=== PATIENT | female | born 1995 | race Hispanic/Latino ===

== ENCOUNTER → 2024-05-02 11:02 | Outpatient (CLI) | payer OTHER, SELFPAY ==
[2024-05-02 12:14] LABS: Add Manual Diff / Slide Review NO; Basophils Absolute Auto 100 /uL (0-100); Eosinophils Absolute Auto 100 /uL (0-450); Eosinophils Percent Auto 1.5 % (2-4); Lymphocytes Absolute Auto 1700 /uL (1100-4500); Mean Corpuscular HGB Conc 33.3 % (30-36); Mean Corpuscular Hemoglobin 27.5 PG (26-34); Mean Corpuscular Volume 82.6 fL (80-100); Monocytes Absolute Auto 600 /uL (0-900); Monocytes Percent Auto 7.7 % (3-14); Neutrophils Absolute Auto 5300 /uL (1500-7000); Neutrophils Percent Auto 67.8 % (50-75); Platelet Count 265 X10^3/uL (150-400); Red Blood Cell Count 4.36 X10^6/uL (4.0-5.2); Red Cell Distribution Width 13.7 % (11.6-14.8); White Blood Cell Count 7.7 X10^3/uL (4.5-11.0)
[2024-05-03 07:08] LABS: RPR Screen Non Reactive (Non Reactive)
[2024-05-03 10:11] LABS: Varicella IgG Antibody Reactive (Non Reactive)
== END ==
PROVIDERS: PCP Specialist; Referring Provider Student in an Organized Health Care Education/Training Program; Visit Provider Student in an Organized Health Care Education/Training Program
DX: Z34.80 Encounter for supervision of other normal pregnancy, unspecified trimester (principal)
CPT/HCPCS: 36415; 80055; 86787; 86803; 86850; 86900; 86901; 87086; 87389

== ENCOUNTER → 2024-07-28 14:57 | Outpatient (CLI) | payer OTHER, SELFPAY ==
--- NOTE | 2024-07-28 14:59 | DI.US.S_ITS ---
PROCEDURE: US OB >= 14 WEEKS FETUS INDICATIONS: 20 week anatomy scan OUTSIDE/PRIOR DATING DATA: Last menstrual period (LMP): 01/02/2024 LMP-based estimated date of delivery (HIEN): 12/08/2024 First dating scan (date and location): 05/02/2024 Estimated date of delivery (HIEN) from first dating scan: 12/11/2024 The calculations are made using the working HIEN of 12/08/2024 TECHNIQUE: Real-time scanning was performed of the fetus, with image documentation and biometric measurements. Endovaginal scanning: Not performed COMPARISON: None. FINDINGS: General: A single living intrauterine gestation is present. Presentation: Breech Placenta: Placental position is anterior, without previa. Delete Amniotic fluid index: 15.8 cm, normal range is 5-24 cm. Single deepest vertical pocket is 7.0 cm. heart rate: 145 beats per minute. Maternal cervical canal: Closed and measures 4.6 cm long. Normal lower limit is 2.5 cm. biometrics: Biparietal diameter: 5.1 cm, 21 weeks, 2 days. Head circumference: 17.8 cm, 20 weeks, 2 days. Abdominal circumference: 16.2 cm, 21 weeks, 2 days. Femur length: 3.3 cm, 20 weeks, 2 days. Clinically estimated gestational age: 21 weeks, 0 day. Composite gestational age from present scan: 20 weeks, 6 days. Estimated weight and percentile: 376 g, 33%. Anatomic survey: Neuro: Ventricles are non-dilated at less than 10 mm. Cisterna magna is normal at 3-11 mm. Cerebellum is normal in size and morphology. Nuchal skin fold: Normal at less than 6 mm between 14-21 weeks gestational age. Face: Nose and lips, facial profile are normal. Spine: No evidence for spina bifida. Heart: 4-chambered heart is present, with normal ventricular outflow tracts. Diaphragm: Diaphragm is intact. Stomach: Left-sided stomach is present. Kidneys: No hydronephrosis. Normal is less than 5 mm in 2nd trimester, less than 7 mm in 3rd trimester. Cord: 3-vessel cord has orthotopic insertion. Bladder: Normal in size. Extremities: All 4 extremities identified. IMPRESSION: 1. Single live intrauterine gestation with fetus in breech presentation. heart rate is 145 beats per minute. Normal RANULFO at 15.8 cm. 2. Normal growth. Estimated weight is at 33%. 3. Normal anatomic survey. We strive to produce accurate, complete, and clear reports of imaging services. To assist us in improving patient care, this report was composed using standard report templates and voice recognition software. Therefore, it may contain abnormal punctuation, insertions and/or omissions. Occasional wrong-word or sound-alike substitutions may occur. Though we review the report and make efforts to correct it, we do recommend that the report be read carefully in proper context to recognize any text inaccuracies. Dictated by: Abdi Rader M.D. on 07/28/2024 at 16:46 Approved by: Abdi Rader M.D. on 07/28/2024 at 16:48
== END ==
LOC: US 14:59
PROVIDERS: PCP Specialist; Referring Provider Student in an Organized Health Care Education/Training Program; Visit Provider Student in an Organized Health Care Education/Training Program
DX: Z34.82 Encounter for supervision of other normal pregnancy, second trimester (principal); Z3A.20 20 weeks gestation of pregnancy
CPT/HCPCS: 76811

== ENCOUNTER → 2024-09-06 07:46 | Outpatient (CLI) | payer OTHER, SELFPAY ==
[2024-09-06 08:36] LABS: Hematocrit 34.2 % (36-46); Hemoglobin 11.5 g/dL (12.0-16.0)
[2024-09-06 10:46] LABS: GTT (PREG) 1 Hour PP 50gm Dose 104 mg/dL (76-139)
== END ==
PROVIDERS: PCP Specialist; Referring Provider Student in an Organized Health Care Education/Training Program; Visit Provider Student in an Organized Health Care Education/Training Program
DX: Z13.0 Encounter for screening for diseases of the blood and blood-forming organs and certain disorders involving the immune mechanism (principal); Z13.1 Encounter for screening for diabetes mellitus
CPT/HCPCS: 36415; 82950; 85014; 85018

== ENCOUNTER → 2024-11-14 14:04 | Outpatient (CLI) | payer OTHER, SELFPAY ==
[2024-11-15 12:39] LABS: Strep Grp B PCR NEG for Grp B Strep
== END ==
PROVIDERS: PCP Specialist; Visit Provider Student in an Organized Health Care Education/Training Program
DX: Z36.85 Encounter for antenatal screening for Streptococcus B (principal)
CPT/HCPCS: 87653

== ENCOUNTER 2024-11-17 09:53 | Outpatient (CLI) | payer OTHER, SELFPAY | END 2024-11-17 10:41 | disposition home or self-care (01) | LOC: LABOR 10:41 → OB 11:04 | PROVIDERS: PCP Specialist; Referring Provider Student in an Organized Health Care Education/Training Program; Visit Provider Student in an Organized Health Care Education/Training Program | DX: O47.1 False labor at or after 37 completed weeks of gestation (principal); Z3A.37 37 weeks gestation of pregnancy | CPT/HCPCS: 59025; G0378; G0379 ==

== ENCOUNTER 2024-11-19 20:23 | Observation (INO) | payer OTHER, SELFPAY ==
--- NOTE | 2024-11-19 20:52 | P.TNLD_ITS ---
Visit Information Visit Information Date of evaluation: 11/19/24 Primary OB Provider: Doretha Kim On-call OB Provider: Cee Trent Reason for Evaluation: Yes other Comments/Additional reasons for admission: [facility], r/o SROM, r/o preE 29yo at 37w2d by 8wk US presents as transfer from [facility] ED. Patient had called clinic today with concerns for new HERCULES with associated vision changes that awakened her from sleep at 0230 as well as worsening RUQ pain and increase in clear vaginal discharge. Pt was instructed to present to local ED for further evaluation. On-call provider called at 1848. Per OSH provider initial BP 147/79, PIH labs obtained but not yet resulted, +FHTs with minimal amniotic fluid on transabdominal US with request for emergent transfer. Transfer accepted and patient arrived to facility at 2018. On arrival to unit patient affirms recent events, states HERCULES subsided with rest/hydration/tylenol but RUQ has persisted, described as sharp with radiation to her mid thoracic region, no identiable relieving or remitting factors. Initial BPs high normal with slow downward trend, reactive NST with MVP 4cm on bedside US, amnisure negative. 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 current occupational exposures/hazards: No special kenny needs: No travel history: recent seatbelt use: always water heater temp set < 120 deg: Yes working smoke detector in home: Yes fire extinguisher in home: No carbon monox detector in home: Yes firearms in home: No do you feel safe at home: Yes second hand exposure: No alcohol intake: former substance use type: does not use during the past year weight has: remained stable well-balanced diet: about half the time daily servings fruits/ve-4 caffeine: Yes (single AM cup coffee) Type(s) of exercise: walking Review of Systems Review of Systems ROS: Yes All systems reviewed with the patient and are negative except as otherwise documented Exam Vital Signs (past 8 hours): see above Const General: cooperative, healthy appearing, comfortable and well developed Nutritional Appearance: average body habitus Orientation: alert, awake and oriented x3 Limitations: mental status not altered Resp Effort & Inspection: normal respiratory effort and able to speak in complete sentences Cardio Pulses: normal peripheral pulses GI Palpation: soft Other: gravid, vicente cephalic 7# transabdominal US: cephalic presentation, MVP 4cm +tone, +respirations Other: amnisure negative Back/Spine/Pelvis Back: normal to inspection Skin General: no rashes or lesions noted Neuro General: patient alert, patient awake and patient oriented x3 Extrem General: normal to inspection Psych Mental Status: mental status grossly normal Judgment: judgment good Evaluation Evaluation Baseline heart rate: 145 Variability: Moderate (6-25) monitor accelerations: Present Monitor Decelerations: Absent Contraction Frequency (minutes): 8 Uterine Contraction Intensity: Mild Category of Tracing: Reactive Status: Category l Cervical dilation (cm): 0 Cervical effacement (%): 0 station: -4 Non-invasive Membranes Rupture Test: negative Diagnosis, Plan/Disposition Plan/Disposition Plan: 29yo at 37w2d by 8wk US presents via transfer from [facility] ED, r/o SROM, r/o PreE High normotensive on arrival with downtrend to 120s/60s following adequate rest, decreased temporal anxiety PIH labs without abnormality , Pr/Cr 0.14 Reactive NST/BPP Prior HERCULES resolved prior to arrival, persistent RUQ discomfort consistent with possible low-grade gallbladder irritation, no evidence of acute cholecystitis Pt requests elective IOL for purposes of coordinating childcare, reviewed plan to discuss with Dr. Kim at time of next encounter strict precautions, cont routine PNC as scheduled Note patient ok to board at facility overnight given no available transport back [facility], [place] [facility] [place] Disposition: home
[2024-11-19 21:10] LABS: Add Manual Diff / Slide Review NO; Hematocrit 32.6 % (36-46); Hemoglobin 11.0 g/dL (12.0-16.0); Lymphocytes Absolute Auto 1800 /uL (1100-4500); Mean Corpuscular HGB Conc 33.8 % (30-36); Mean Corpuscular Hemoglobin 26.6 PG (26-34); Mean Corpuscular Volume 78.7 fL (80-100); Platelet Count 234 X10^3/uL (150-400)
[2024-11-19 21:22] LABS: Alanine Aminotransferase 15 IU/L (<35); Albumin 3.9 g/dL (3.5-5.0); Albumin Globulin Ratio 1.2 (1.0-2.8); Alkaline Phosphatase 156 U/L (38-126); Blood Urea Nitrogen 11 mg/dL (7-17); Calcium 9.1 mg/dL (8.4-10.2); Carbon Dioxide 21 mmol/L (22-32); Chloride 107 mmol/L (98-107); Estimated Glomerular Filt Rate > 60 mL/min (>60); Globulin 3.3 g/dL (1.7-4.1); Glucose 89 mg/dL (70-99); HEMOLYSIS < 15 (0-50); Potassium 3.8 mmol/L (3.4-5.1); Sodium 135 mmol/L (137-145); Total Protein 7.2 g/dL (6.3-8.2); Uric Acid 3.6 mg/dL (2.5-6.2)
[2024-11-19 21:32] LABS: Protein (Total) Urine Random 10 mg/dL (0-12); Protein Creatinine Ratio Urine 0.14 GRAM/24H
== END 2024-11-20 08:35 | disposition home or self-care (01) ==
PROVIDERS: Admitting Provider Obstetrics & Gynecology; PCP Specialist; Referring Provider Obstetrics & Gynecology; Visit Provider Obstetrics & Gynecology
DX: Z03.71 Encounter for suspected problem with amniotic cavity and membrane ruled out (principal); O26.893 Other specified pregnancy related conditions, third trimester; R51.9 Headache, unspecified; H53.9 Unspecified visual disturbance; R10.11 Right upper quadrant pain; Z3A.37 37 weeks gestation of pregnancy
CPT/HCPCS: 36415; 59025; 59050; 76815; 80053; 84112; 84550; 85025; G0378; G0379

== ENCOUNTER 2024-11-21 10:06 | Observation (INO) | payer OTHER, SELFPAY ==
--- NOTE | 2024-11-21 10:19 | DI.US.S_ITS ---
PROCEDURE: US OB BIOPHYSICAL PROFILE INDICATIONS: Gestational hypertension OUTSIDE/PRIOR DATING DATA: Last menstrual period (LMP): January 02, 2024. LMP-based estimated date of delivery (HIEN): December 08, 2024. First dating scan (date and location): May 02, 2024. Estimated date of delivery (HIEN) from first dating scan: December 11, 2024. The calculations are made using the LMP HIEN of December 08, 2024. TECHNIQUE: Real-time scanning was performed of the fetus for biophysical profile, with image documentation. Color and pulse Doppler interrogation was also performed of the umbilical artery near its insertion into the placenta. Endovaginal scanning: Not performed COMPARISON: None. FINDINGS: General: A single living intrauterine gestation is present. Presentation: Vertex. Placenta: Placental position is anterior , without previa. Amniotic fluid index: 8.9 cm, normal range is 5-24 cm. Single deepest vertical pocket is 4.6 cm. heart rate: 149 beats per minute. Maternal cervical canal: Maternal cervix not well visualized secondary to advanced gestational age and presentation. Clinically estimated gestational age: 37 weeks and 4 days Biophysical profile: Tone: 2 points. Movement: 2 points. Respiration: 2 points. Largest pocket of fluid: 2 points. IMPRESSION: Single living intrauterine gestation with estimated gestational age of approximately 37 weeks and 4 days. Four-quadrant RANULFO measuring 8.9 cm with largest vertical pocket measuring 4.6 cm. Biophysical profile score of 8 out of 8. We strive to produce accurate, complete, and clear reports of imaging services. To assist us in improving patient care, this report was composed using standard report templates and voice recognition software. Therefore, it may contain abnormal punctuation, insertions and/or omissions. Occasional wrong-word or sound-alike substitutions may occur. Though we review the report and make efforts to correct it, we do recommend that the report be read carefully in proper context to recognize any text inaccuracies. Dictated by: Dilip Ruiz M.D. on 11/21/2024 at 12:20 Approved by: Dilip Ruiz M.D. on 11/21/2024 at 12:23
[2024-11-21 11:24] LABS: Add Manual Diff / Slide Review NO; Hematocrit 35.2 % (36-46); Hemoglobin 11.7 g/dL (12.0-16.0); Lymphocytes Absolute Auto 1300 /uL (1100-4500); Mean Corpuscular HGB Conc 33.3 % (30-36); Mean Corpuscular Hemoglobin 26.7 PG (26-34); Mean Corpuscular Volume 80.2 fL (80-100); Platelet Count 232 X10^3/uL (150-400)
[2024-11-21 11:34] LABS: Alanine Aminotransferase 15 IU/L (<35); Albumin 4.1 g/dL (3.5-5.0); Albumin Globulin Ratio 1.1 (1.0-2.8); Alkaline Phosphatase 146 U/L (38-126); Blood Urea Nitrogen 12 mg/dL (7-17); Calcium 9.7 mg/dL (8.4-10.2); Carbon Dioxide 23 mmol/L (22-32); Chloride 105 mmol/L (98-107); Estimated Glomerular Filt Rate > 60 mL/min (>60); Globulin 3.6 g/dL (1.7-4.1); Glucose 92 mg/dL (70-99); HEMOLYSIS < 15 (0-50); Potassium 3.6 mmol/L (3.4-5.1); Sodium 138 mmol/L (137-145); Total Protein 7.7 g/dL (6.3-8.2); Uric Acid 3.7 mg/dL (2.5-6.2)
[2024-11-21 12:27] LABS: Protein (Total) Urine Random 18 mg/dL (0-12); Protein Creatinine Ratio Urine 0.11 GRAM/24H
== END 2024-11-21 12:44 | disposition home or self-care (01) ==
PROVIDERS: Admitting Provider Student in an Organized Health Care Education/Training Program; PCP Specialist; Referring Provider Student in an Organized Health Care Education/Training Program; Visit Provider Student in an Organized Health Care Education/Training Program
DX: O36.8130 Decreased fetal movements, third trimester, not applicable or unspecified (principal); O13.3 Gestational [pregnancy-induced] hypertension without significant proteinuria, third trimester; Z3A.37 37 weeks gestation of pregnancy
CPT/HCPCS: 36415; 59025; 59050; 76819; 80053; 84550; 85025; G0378; G0379